=== PATIENT | female | born 1970 | race African-American/Black ===

== ENCOUNTER 2023-01-25 15:02 | Emergency (ER) | payer OTHER, MEDICAID ==
[~2023-01-25] VITALS: Ht 165.1 cm; Wt 109.0 kg
[~2023-01-25 15:02] MED LIST: ALBU90AE IH; ASPI-1497 PO; ATOR20TA65 PO; BUPR-315 PO; BUSP15TA3 PO; FLUT1AER4 INH; METO-539 PO; TRAZ300T11 PO
[2023-01-25 15:13] VITALS: BP 144/73
[2023-01-25] MEDS ORDERED: HYDROCODONE/ACETAMINOPHEN 5/325MG TABLET PO ONE (17:00)
[2023-01-25 17:33] LABS: CHLORIDE 109 mEq/L (98-107)
[2023-01-25 18:15] LABS: BASOPHILS % 0.6 % (0.0-2.0); EOSINOPHILS % 1.9 % (0.0-5.0); HEMATOCRIT. 40.6 % (36.0-48.0); HEMOGLOBIN. 13.6 g/dL (12.0-16.0); LYMPHOCYTES % 20.7 % (20.0-50.0); MEAN CORPUSCULAR HEMOGLOBIN 30.9 pg (28.0-32.0); MEAN CORPUSCULAR VOLUME 92.2 fL (81.0-99.0); MEAN PLATELET VOLUME 8.3 fl (7.4-10.4); MONOCYTES % 8.6 % (2.0-8.0); NEUTROPHILS % 68.2 % (40.0-76.0); PLATELET 304 x1000/uL (130-400); RED CELL DISTRIBUTION WIDTH 13.6 % (11.6-14.6)
[2023-01-25] MEDS ORDERED: HYDROCODONE/ACETAMINOPHEN 5/325MG TABLET PO NR (19:45)
[2023-01-25] MEDS ORDERED: IBUP-1523 MT (20:23)
[2023-01-25] MEDS ORDERED: ACET-2708 MT (20:24)
== END 2023-01-25 21:12 | disposition home or self-care (01) ==
LOC: ER 15:29
DX: M25.561 Pain in right knee (principal); M79.89 Other specified soft tissue disorders; R00.0 Tachycardia, unspecified; J45.909 Unspecified asthma, uncomplicated; Z95.2 Presence of prosthetic heart valve; Z79.899 Other long term (current) drug therapy; Z79.82 Long term (current) use of aspirin; Z79.51 Long term (current) use of inhaled steroids; Z88.0 Allergy status to penicillin
CPT/HCPCS: 36415; 71045; 73562; 80053; 83880; 85025; 93005; 93971; 99285